=== PATIENT | male | born 1995 | race Two or more races ===

== ENCOUNTER 2020-05-05 16:03 | Inpatient (IN) | payer SELFPAY ==
[2020-05-05] VITALS (9 sets, daily range): BP systolic 127–168; BP diastolic 54–105; PULSE 90–121; RESP 18–25; TEMP 36.6–36.7; O2SAT 97–100; BMI 34.1
--- NOTE | ~2020-05-05 | XR_ITS ---
EXAMINATION: XR chest 2V DATE: 05/05/2020 17:21 INDICATION: Shortness of breath. Diabetic ketoacidosis. TECHNIQUE: frontal and lateral views of the chest were obtained. COMPARISON: None FINDINGS: The lungs are clear with no focal airspace opacities, pulmonary edema, pleural effusion or pneumothor ax. The cardiomediastinal silhouette is normal. Mild anterior wedging of a couple lower thoracic vert ebral bodies. IMPRESSION: 1. No acute cardiopulmonary disease. Reviewed, dictated and finalized at location H. OR LOGISTICS MANAGER
--- NOTE | ~2020-05-05 | XR_ITS ---
EXAMINATION: XR abdomen/kub 1V DATE: 05/05/2020 21:29 INDICATION: Constipation TECHNIQUE: A supine view of the abdomen on 2 radiographs was obtained. COMPARISON: None. FINDINGS: Moderate to large amount of stool scattered throughout the colon. Moderate amount of gas scattered th roughout multiple loops of nondilated small bowel in the abdomen and pelvis in a nonspecific nonobstr uctive bowel gas pattern. IMPRESSION: 1. Nonspecific bowel gas pattern with moderate to large amount of colonic stool consistent with given history of constipation. Reviewed, dictated and finalized at location H. LIANDEER LOOPER
[2020-05-05 16:09] LABS: Glucose Point of Care 363 (65-105)
--- NOTE | 2020-05-05 16:20 | PC.NURSE ---
provider in room.
[2020-05-05 16:25] LABS: Basophils Absolute Auto 0.1 K/mm3 (0.0-0.1); Basophils Percent Auto 0.4 % (0.2-1.2); Eosinophils Percent Auto 0.1 % (0-4.4); Hematocrit 49.1 % (42.0-52.0); Hemoglobin 16.3 g/dL (14.0-18.0); Immature Granulocyte Absolute 0.12 K/mm3 (0.00-0.031); Lymphocytes Absolute Auto 1.08 K/mm3 (0.9-3.2); Lymphocytes Percent Auto 8.8 % (18.3-44.2); Mean Corpuscular HGB Conc 33.2 g/dl (32-36); Mean Corpuscular Hemoglobin 28.4 pg (26-34); Mean Corpuscular Volume 85.5 fl (80-100); Monocytes Absolute Auto 0.6 K/mm3 (0.1-0.6); Monocytes Percent Auto 4.5 % (2.6-8.5); Neutrophils Absolute Auto 10.5 K/mm3 (1.3-6.7); Neutrophils Percent Auto 85.2 % (45.5-73.1); Platelet Count Result 344 k/mm3 (150-375); Red Blood Count 5.74 M/mm3 (4.6-6.20); Red Cell Distribution Width 14.1 % (11.5-14.5); White Blood Count 12.3 K/mm3 (4.5-10.0)
--- NOTE | 2020-05-05 16:28 | ED.NAVMDI ---
HPI - Nausea/Vomiting/Diarrhea General Chief complaint: Nausea/Vomiting/Diarrhea Stated complaint: high blood sugar Time Seen by Provider: 05/05/20 16:05 Source: patient Mode of arrival: EMS Limitations: no limitations History of Present Illness HPI Narrative: This is a 24 year old male that presents to the ER for nausea and vomiting x 1 week. Reports he was recently diagnosed with diabetes. Reports he started Metformin 3 days ago. Reports he has had polyuria and polydipsia. Reports intermittent, achy lower abdominal pain. Reports some shortness of breath with exertion. Denies fever, lower extremity edema, cough, chest pain, diarrhea, dysuria. Related Data Home Medications Medication Instructions Recorded Confirmed metformin mg 05/05/20 Allergies Allergy/AdvReac Type Severity Reaction Status Date / Time No Known Allergies Allergy Verified 05/05/20 16:16 Review of Systems Review of Systems: Narrative: CONSTITUTIONAL: Denies fever ENT: Denies rhinorrhea, congestion, sore throat CARDIOVASCULAR: Denies chest pain, or edema. RESPIRATORY: Denies cough or dyspnea. GASTROINTESTINAL: Reports abdominal pain, nausea, vomiting. Denies diarrhea. GENITOURINARY: Denies dysuria or hematuria. All systems reviewed & are unremarkable except as noted in HPI and below PMFSH Past Medical History Medical History (Updated 05/05/20 @ 18:33 by Jessica Ny PA-C) History of diabetes mellitus Social History Social History (Updated 05/05/20 @ 16:37 by Jessica Ny PA-C) Substance use: never Exam Narrative: Exam Narrative: GENERAL: Well-appearing, obese, and in no acute distress. HEAD: Normocephalic, atraumatic. EYES: PERRLA and EOMI. ENT: Nares clear, no rhinorrhea or epistaxis. Mucous membranes moist. Oropharynx without tonsillar hypertrophy exudate or other lesions. Bilateral TMs pearly cody non-bulging NECK: Supple. No adenopathy or masses. CHEST: Clear to auscultation. No respiratory distress. No wheezes rales or rhonchi HEART: Regular rate and rhythm. No murmur heard. Normal peripheral pulses. ABDOMEN: Soft, nontender, nondistended, normal active bowel sounds. EXTREMITIES: Normal range of motion. No edema. SKIN: Warm, dry, no rash. NEURO: No focal deficits. Alert and oriented x3. PSYCH: Normal mood and affect Course Consultations Consultation #1: Spoke with hospitalist about patient and workup who accepts admission Date: 05/05/20 Time: 18:39 Consultation #2: Dr Benton will consult for ICU admission Date: 05/05/20 Time: 18:40 Vital Signs Vital signs: Vital Signs Pulse Rate 119 H 05/05/20 16:09 Respiratory Rate 20 05/05/20 16:09 Pulse Oximetry 100 05/05/20 16:09 Temperature 98.0 F 05/05/20 16:19 Pulse Rate 113 H 05/05/20 16:16 Respiratory Rate 25 H 05/05/20 16:16 Blood Pressure 168/104 H 05/05/20 16:16 Pulse Oximetry 99 05/05/20 16:10 MDM - Nausea/Vomiting/Diarrhea MDM Narrative Medical decision making narrative: Patient presents to the emergency department for nausea and vomiting. Was recently diagnosed with diabetes. Patient is afebrile and nontoxic-appearing. Tachycardic upon arrival, this normalized with IV fluid administration. CBC with mild leukocytosis to 12.3. Metabolic panel with anion gap of 26 with bicarb of 7. Blood glucose is 371. Beta hydroxybutyrate is elevated. UA with 2+ ketones. ABG with pH of 7.173, PCO2 of 16, and PO2 of 125. Chest x-ray is without acute findings. EKG is without concerning changes. Patient denies any chest pain. Patient hydrated in the ED and started on insulin drip. Spoke with hospitalist about patient and work-up who accepts admission. Dr. Benton will consult for the ICU Lab Data Attestation: I reviewed the patient's lab results. Result diagrams: 05/05/20 16:20 05/05/20 16:20 Labs: Lab Results 05/05/20 05/05/20 05/05/20 Range/Units 16:07 16:19 16:20 WBC 12.3 H (4.5-10.0) K/mm3 RBC
[2020-05-05 16:32] LABS: Alveolar/Arterial O2 Gradient 5.6 mmHg; Carboxyhemoglobin 0.4 % THb (0-2.0); Fractional Inspired Oxygen 21 %; HCO3 ABG 5.7 mEq/l (22.0-26.0); Methemoglobin ABG 0.6 %THb (0-1.5); Oxygen Content ABG 23.4 %vol (16.0-22.0); Oxygen Saturation ABG 97.7 % (95.0-100.0); Oxyhemoglobin 96.9 % THb (90.0-100.0); PO2 FiO2 Ratio Arterial Blood 5.95 %; Reduced Hemoglobin 2.1 %THb (0-5.0); Total Hemoglobin 17.1 g/dL (12.0-18.0)
[2020-05-05 16:34] LABS: Device ROOM AIR; Modified Allen's Test Pass; Site Drawn RIGHT RADIAL; pH ABG 7.173 (7.350-7.450)
[2020-05-05 16:37] LABS: Alanine Aminotransferase 54 U/L (4-50); Albumin Level 4.4 g/dL (3.5-5.1); Alkaline Phosphatase 111 U/L (38-126); Anion Gap 26 mmol/L (8-16); Aspartate Amino Transferase 29 U/L (17-59); Bilirubin,Total 0.6 mg/dL (0.2-1.3); Blood Urea Nitrogen 12 mg/dL (9-20); Calcium 8.9 mg/dL (8.4-10.2); Carbon Dioxide 7 mmol/L (22-30); Chloride 108 mmol/L (98-107); Estimated CRCL calculation 115 ml/min; Estimated Glomerular Filt Rate > 60; Glucose 371 mg/dL (75-110); Phosphorus 3.7 mg/dL (2.5-4.5); Potassium 4.5 mmol/L (3.4-5.0); Sodium 141 mmol/L (137-145)
[2020-05-05] MEDS: INSULIN HUMAN REGULAR (*BKC) 100 UNITS/ML 11 UNITS IV PUSH (16:37)
[2020-05-05] MEDS: SODIUM CHLORIDE 0.9% IV 1,000 ML 999 ML IV CONT (16:37)
[2020-05-05 16:54] LABS: Add Urine Microscopic? YES; Appearance Urine Clear (Clear); Bilirubin Urine Negative (Negative); Blood Urine 1+ (Negative); Color Urine Straw (Yellow); Glucose Urine UA 3+ mg/dL (Negative); Ketones Urine 2+ mg/dL (Negative); Leukocyte Esterase Ur Negative LEU/UL (Negative); Mucus Urine Rare /lpf; Nitrate Urine Negative (Negative); Protein Urine 2+ mg/dL (Negative); RBC Urine 0-2 /hpf (0-2); Urobilinogen Urine Negative mg/dL (<2.0); WBC Urine 0-3 /hpf
[2020-05-05 17:23] LABS: Beta-Hydroxybutyrate/Acetoacetate 8.51 mmol/L (0.02-0.27)
[2020-05-05] MEDS: ONDANSETRON INJ 4 MG/2 ML VIAL IV PUSH (17:33)
[2020-05-05 17:51] LABS: NT Pro B Type Natriuretic Pept < 11 PG/ML (5-100)
[2020-05-05] MEDS: LACTATED RINGERS 1,000 ML 999 ML IV CONT (18:26)
[2020-05-05 18:41] LABS: Glucose Point of Care 287 (65-105)
[2020-05-05] MEDS: INSULIN HUMAN REGULAR (*BKC) 100 UNITS in SODIUM CHLORIDE 0.9% IV 99 ML IV CONT (19:13)
[2020-05-05] MEDS: SODIUM CHLORIDE 0.9% IV 1,000 ML 150 ML IV CONT (20:00)
[2020-05-05 20:12] LABS: Glucose Point of Care 310 (65-105)
--- NOTE | 2020-05-05 20:30 | PM.IMHP ---
H&P: HPI History of Present Illness Date/Time: 05/05/20 20:30 Chief complaint: Nausea, vomiting, and dizziness. Narrative: Peter Valverde is a 24-year-old male recently diagnosed with diabetes who presented to the emergency department earlier today via EMS from home with complaints of nausea, vomiting, and dizziness. He has not felt well for nearly 1 months time and has not worked in 3 weeks due to ongoing symptoms to include heartburn, nausea, vomiting, lightheadedness, polydipsia, polyuria, and feelings of dehydration. He was seen at [facility] 4 days ago on Monday, at that time he was diagnosed with diabetes and given a prescription for metformin 850 mg b.i.d. He has been taking the medication as directed however he was not discharged with a glucometer so he has not been monitoring his glucose. He did have an appointment set up with Dr. Hoyt (endocrinology) sometime this week. Unfortunately he has continued to feel worse, estimating that he vomited no less than 15 times yesterday. The patient's brother called 911 today as he has been sleeping for over 24 hours and appeared short of breath. He was found to be in diabetic ketoacidosis and is being admitted in this setting. At the time my evaluation his biggest complaint is of thirst. He denies fever but has had some chills. No headache, sinus congestion, rhinorrhea, otalgia, or odynophagia. He denies cough and known exposure to those positive for COVID-19. No chest pain, pleuritic pain, or palpitations. He denies hematemesis, melena, and hematochezia. No dysuria or hematuria. Or family history of autoimmune disease. Review of Systems Review of Systems: Narrative: Twelve systems were reviewed with pertinent positives and negatives as per HPI. He thinks he has lost some weight over the last 3 weeks but he has not weighed himself. No blurry vision. He denies paresthesias. He was taking antacids for his heartburn and that has improved. No orthopnea, PND, or lower extremity edema. He has not had a bowel movement in almost 1 week, which is unusual for him. He will have occasional aching discomfort in the lower abdomen but nothing significant. Except as documented, all other systems were reviewed and are negative. [facility] Past Medical History Medical History (Updated 05/05/20 @ 20:45 by Dominique Cook PA-C) Diabetes mellitus, new onset (~05/05/20) Surgical History Surgical History (Updated 05/05/20 @ 20:46 by Dominique Cook PA-C) No history of previous surgery Family History Family History (Updated 05/05/20 @ 20:46 by Dominique Cook PA-C) Sibling Epilepsy Cerebral palsy Social History Social History (Updated 05/05/20 @ 20:47 by Dominique Cook PA-C) Social History: The patient lives in [place] with his brother and grandmother. 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 He has no children. He is a lifelong nonsmoker and denies alcohol and illicit substance abuse. He designates his brother Carlos Valverde as his surrogate decision maker and he wishes to be a full code. Meds Home Medications and Allergies Home Medications Medication Instructions Recorded Confirmed Type metformin mg 05/05/20 History Allergies Allergy/AdvReac Type Severity Reaction Status Date / Time No Known Allergies Allergy Verified 05/05/20 16:16 Vital Signs Vital Signs - 24 hr 05/05/20 16:09 05/05/20 16:10 05/05/20 16:15 Temperature Pulse Rate 119 H 121 H 112 H Respiratory Rate 20 23 H 24 H Blood Pressure 161/105 H Pulse Oximetry 100 99 05/05/20 16:16 05/05/20 16:19 05/05/20 19:30 Temperature 98.0 F 98.0 F Pulse Rate 113 H 104 H Respiratory Rate 25 H 18 Blood Pressure 168/104 H 157/80 H Pulse Oximetry 97 Exam Narrative: Exam Narrative: General: Moderately ill-appearing male supine in bed in no distress. Weight: 107.8 kg. BMI: 34.1. HEENT: Normocephalic, atraumatic. PERRL, EOMI. Sclerae anicteric. Oral mu
--- NOTE | 2020-05-05 20:31 | WPDCNINT ---
Assessment and Plan Assessment and plan (1) Diabetic ketoacidosis: Qualifiers: Diabetes mellitus complication detail: without coma Diabetes mellitus type: type 2 Qualified Code(s): E11.10 - Type 2 diabetes mellitus with ketoacidosis without coma Code(s): E11.10 - Type 2 diabetes mellitus with ketoacidosis without coma Status: Acute Assessment and Plan: It is unclear at this time if patient is in DKA due to type 1 or type 2 diabetes. Antibody testing is pending. Patient is on insulin drip in IV fluid hydration per protocol. Will continue serial BMPs and monitor for anion gap closure and normalization of CO2. clinical document improvement educator and dietitian consult have been placed (2) Constipation: Qualifiers: Constipation type: slow transit constipation Qualified Code(s): K59.01 - Slow transit constipation Code(s): K59.00 - Constipation, unspecified Status: Acute Assessment and Plan: Will initiate patient on MiraLax given evidence of large stool volume on KUB. (3) Elevated blood pressure reading: Code(s): R03.0 - Elevated blood-pressure reading, without diagnosis of hypertension Status: Acute Assessment and Plan: The patient's blood pressures have improved. Will continue to monitor and consider initiating antihypertensives if Recurrent blood pressure elevation is noted. Additional Plan 35 minutes spent in critical care activities. This case had a high probability of a clinically significant, sudden, or life threatening deterioration of this patient's condition which required my full and direct attention, intervention and personal management. Solar Crew Member Consult Note Consult date: 05/06/20 Time Seen: 20:30 HPI: Date and time of patient contact: 05/05/2020 at 8:30 p.m. Peter Valverde is a 24 year old male with a past medical history of obesity and new diagnosis of diabetes who presented to the ER with nausea vomiting and dizziness. The patient was just diagnosed with diabetes on Monday (5 days ago) when he went to [facility] Who presented to our ER with progressive nausea and vomiting despite taking metformin prescribed at outside facility. The patient reports that he has had approximately 3 weeks progressive nausea and polydipsia. He has had intermittent vomiting for the last couple of weeks . He reports that his vomiting is worse when he drinks tap water. The only liquids he has been able to keep down has been regular soda. He has had polydipsia and polyuria. He had not noticed his weight loss but he has noticed that his pants have been fitting looser than usual. He has not noticed any headache, visual changes, cough, congestion, fevers or chills. he has not had any recent ill contacts and denies any diarrhea. He has had decreased amount of bowel movements that he associates with his decreased appetite nausea and vomiting. He has had some mild intermittent lower abdominal pain without any eliciting or relieving factors. the patient had been referred to Dr. Proctor endocrinology from [facility] but he did not receive a glucometer or instructions on Accu-Cheks at the time of discharge. 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 He has not been referred to a dietitian or breastfeeding educator as of yet. The patient had received 800 mL of isotonic fluids in route to the hospital. He received an additional 2 L of isotonic fluids in the ER. Review of Systems Review of Systems: Narrative: 12 systems were reviewed with pertinent positives and negatives per HPI. Except as documented in the HPI, all other systems were reviewed and are negative. [facility] Past Medical History Medical History Diabetes mellitus, new onset (~05/05/20) Surgical History Surgical History No history of previous surgery
[2020-05-05 21:26] LABS: Glucose Point of Care 188 (65-105)
[2020-05-05] MEDS: FAMOTIDINE 20 MG/2 ML VIAL IV PUSH (21:44)
[2020-05-05] MEDS: KCL 20 MEQ/D5/0.45% SOD CHL 1,000 ML 150 ML IV CONT (21:44)
[2020-05-05 21:59] LABS: Glucose Point of Care 205 (65-105)
--- NOTE | 2020-05-05 22:09 | ADMGEN ---
This patient, Peter Valverde, was admitted to IMU Room 205-01. Patient/family oriented to hospital policies and general routines including ID bracelet, bed and alarms, visiting hours, pain management, procedures, bathroom and other care routines, personal items, smoking policy, room service/diet, and visiting hours. Information on how to activate the Rapid Response Team has been discussed. Patient/Family are encouraged to report perceived risks to care and to ask questions if they do not understand what they are told or what they should do.
[2020-05-05 22:13] LABS: Phosphorus 1.4 mg/dL (2.5-4.5)
[2020-05-05 22:14] LABS: Anion Gap 22 mmol/L (8-16); Blood Urea Nitrogen 11 mg/dL (9-20); Calcium 9.1 mg/dL (8.4-10.2); Carbon Dioxide 7 mmol/L (22-30); Chloride 114 mmol/L (98-107); Estimated CRCL calculation 151 ml/min; Estimated Glomerular Filt Rate > 60; Glucose 177 mg/dL (75-110); Potassium 3.8 mmol/L (3.4-5.0); Sodium 143 mmol/L (137-145)
[2020-05-05 22:24] LABS: Hemoglobin A1C 13.3 % (<5.7)
[2020-05-05 23:28] LABS: Hemoglobin A1C 13.4 % (<5.7)
[2020-05-05 23:37] LABS: Glucose Point of Care 195 (65-105)
[2020-05-06] VITALS (13 sets, daily range): BP systolic 101–150; BP diastolic 45–76; PULSE 73–109; RESP 16–20; TEMP 35.6–36.7; O2SAT 97–100
[2020-05-06] LABS: Anion Gap 18 mmol/L (8-16); Blood Urea Nitrogen 11 mg/dL (9-20); Carbon Dioxide 10 mmol/L (22-30); Chloride 114 mmol/L (98-107); Estimated CRCL calculation 151 ml/min; Estimated Glomerular Filt Rate > 60; Glucose 209 mg/dL (75-110); Potassium 3.7 mmol/L (3.4-5.0); Sodium 142 mmol/L (137-145)
[2020-05-06 00:56] LABS: Glucose Point of Care 198 (65-105)
[2020-05-06 02:13] LABS: Glucose Point of Care 154 (65-105)
[2020-05-06 03:09] LABS: Glucose Point of Care 161 (65-105)
[2020-05-06 03:21] LABS: Add Urine Microscopic? YES; Appearance Urine Clear (Clear); Bilirubin Urine Negative (Negative); Blood Urine Negative (Negative); Color Urine Yellow (Yellow); Glucose Urine UA 3+ mg/dL (Negative); Ketones Urine 2+ mg/dL (Negative); Leukocyte Esterase Ur Negative LEU/UL (NEGATIVE); Mucus Urine Rare /lpf; Nitrate Urine Negative (Negative); Protein Urine 2+ mg/dL (Negative); RBC Urine 0-2 /hpf (0-2); Specific Grav Ur 1.024 (1.001-1.035); Squamous Epithelial Cell Urine Rare /hpf (Few); Urobilinogen Urine Negative mg/dL (<2.0); WBC Urine 0-3 /hpf (0-3)
[2020-05-06 04:35] LABS: Glucose Point of Care 143 (65-105)
[2020-05-06] MEDS: INSULIN HUMAN REGULAR (*BKC) 100 UNITS in SODIUM CHLORIDE 0.9% IV 99 ML 5.7 UNITS IV CONT (04:38)
[2020-05-06] MEDS: KCL 20 MEQ/D5/0.45% SOD CHL 1,000 ML 150 ML IV CONT ×2 (04:38→17:12)
[2020-05-06 05:00] LABS: Hematocrit 40.1 % (42.0-52.0); Hemoglobin 14.1 g/dL (14.0-18.0); Mean Corpuscular HGB Conc 35.2 g/dl (32-36); Mean Corpuscular Hemoglobin 28.5 pg (26-34); Mean Corpuscular Volume 81.2 fl (80-100); Mean Platelet Volume 9.9 fl (7.4-10.4); Platelet Count Result 288 k/mm3 (150-375); Red Blood Count 4.94 M/mm3 (4.6-6.20); Red Cell Distribution Width 13.8 % (11.5-14.5)
[2020-05-06 05:15] LABS: Alanine Aminotransferase 46 U/L (4-50); Albumin Level 3.9 g/dL (3.5-5.1); Alkaline Phosphatase 87 U/L (38-126); Anion Gap 12 mmol/L (8-16); Aspartate Amino Transferase 25 U/L (17-59); Bilirubin,Total 0.5 mg/dL (0.2-1.3); Blood Urea Nitrogen 12 mg/dL (9-20); Calcium 9.1 mg/dL (8.4-10.2); Carbon Dioxide 15 mmol/L (22-30); Chloride 114 mmol/L (98-107); Cholesterol 182 mg/dL (0-200); Estimated CRCL calculation 151 ml/min; Estimated Glomerular Filt Rate > 60; Glucose 143 mg/dL (75-110); HDL Direct 35 mg/dL; Magnesium 2.3 mg/dL (1.6-2.3); Potassium 3.2 mmol/L (3.4-5.0); Sodium 141 mmol/L (137-145); Triglycerides 230 mg/dL (<150)
[2020-05-06 05:21] LABS: Glucose Point of Care 132 (65-105)
[2020-05-06 05:26] LABS: LDL Cholesterol Direct 90 mg/dL
[2020-05-06 06:42] LABS: Glucose Point of Care 135 (65-105)
--- NOTE | 2020-05-06 07:23 | WPDINTPN ---
Progress Note: A&P Assessment and Plan (1) Diabetes mellitus, new onset: Onset Date: ~05/05/20 Code(s): E11.9 - Type 2 diabetes mellitus without complications Status: Acute Assessment and Plan: The patient's bicarb has improved significantly in his anion gap is closed. Will discontinue insulin drip if CO2 as continue to improve and transition patient to Lantus and sliding scale insulin. Patient will be transferred to the medical floor once insulin drip is discontinued. I suspect the patient will be on the insulin drip by this afternoon at the latest. special educator and dietitian have been consulted. (2) Constipation: Qualifiers: Constipation type: slow transit constipation Qualified Code(s): K59.01 - Slow transit constipation Code(s): K59.00 - Constipation, unspecified Status: Acute Assessment and Plan: Will initiate patient on MiraLax given evidence of large stool volume on KUB. (3) Elevated blood pressure reading: Code(s): R03.0 - Elevated blood-pressure reading, without diagnosis of hypertension Status: Acute Assessment and Plan: The patient's blood pressures have improved. Will continue to monitor and consider initiating antihypertensives if Recurrent blood pressure elevation is noted. (4) Diabetic ketoacidosis: Qualifiers: Diabetes mellitus complication detail: without coma Diabetes mellitus type: type 2 Qualified Code(s): E11.10 - Type 2 diabetes mellitus with ketoacidosis without coma Code(s): E11.10 - Type 2 diabetes mellitus with ketoacidosis without coma Status: Acute Assessment and Plan: Please see above plan. Time Spent With Patient Time with patient: 15 - 25 minutes Subjective Date/time seen: 05/06/20 07:23 The patient the throughout the night. He did have a more severe episode of nausea this morning and thought he may vomit. He is still feeling constipated. He denies any current abdominal pain. He feels marginally better. Review of Systems Constitutional: Constitutional: Reports malaise and Reports poor appetite Eyes: Eyes: Denies change in vision ENT: Reports dry mouth Gastrointestinal: Gastrointestinal: Reports abdominal pain, Reports constipation and Reports nausea Genitourinary: Genitourinary: Reports urinary frequency Exam Narrative: Exam Narrative: PHYSICAL EXAM: WEIGHT 107.8 kg BMI 34.1 General: no acute distress, overweight HEENT: mucous membranes are tacky, no oral pharyngeal erythema, no scleral icterus, pupils are equal and reactive, no thyromegaly Respiratory: clear to auscultation bilaterally, mild conversational tachypnea, no increased work of breathing Cardiovascular: Sinus tachycardia, 2+ bilateral radial pedal pulses Gastrointestinal: soft, distended, nontender, normoactive bowel sounds Skin: no jaundice, no pallor Musculoskeletal: no skin breakdown on the feet, no clubbing cyanosis or edema Neurological: alert and oriented, speech is clear, no facial asymmetry, no localizing neurologic deficits noted on limited exam Psychiatric: appropriate mood and affect, pleasant and cooperative : deferred Hematologic/lymphatic: no bruising, petechiae or active bleeding Objective Data Vital Signs Vital Signs: Vital Signs - 24 hr 05/05/20 16:09 05/05/20 16:10 05/05/20 16:15 Temperature Pulse Rate 119 H 121 H 112 H Respiratory Rate 20 23 H 24 H Blood Pressure 161/105 H Pulse Oximetry 100 99 05/05/20 16:16 05/05/20 16:19 05/05/20 19:30 Temperature 98.0 F 98.0 F Pulse Rate 113 H 104 H Respiratory Rate 25 H 18 Blood Pressure 168/104 H 157/80 H Pulse Oximetry 97 05/05/20 20:00 05/05/20 22:00 05/05/20 23:47 Temperature 97.9 F 97.8 F Pulse Rate 116 H 102 H 90 Respiratory Rate 20 20 18 Blood Pressure 157/80 H 138/66 127/54 L Pulse Oximetry 97 97 97 05/06/20 00:00 05/06/20 02:00 05/06/20 04:00 Temperature 97.9 F
[2020-05-06 09:08] LABS: Anion Gap 13 mmol/L (8-16); Blood Urea Nitrogen 13 mg/dL (9-20); Calcium 9.2 mg/dL (8.4-10.2); Carbon Dioxide 14 mmol/L (22-30); Chloride 113 mmol/L (98-107); Estimated CRCL calculation 171 ml/min; Estimated Glomerular Filt Rate > 60; Glucose 187 mg/dL (75-110); Potassium 4.2 mmol/L (3.4-5.0); Sodium 140 mmol/L (137-145)
[2020-05-06] MEDS: lisinopriL 10 MG TABLET PO (09:40)
[2020-05-06] MEDS: FAMOTIDINE 20 MG/2 ML VIAL IV PUSH ×2 (09:40→20:40)
[2020-05-06] MEDS: ENOXAPARIN 40 MG/0.4 ML SYRINGE SUB-Q (09:40)
[2020-05-06] MEDS: polyethylene glycoL 3350 17 GM POWD.PACK PO (09:40)
[2020-05-06] MEDS: POTASSIUM PHOS,M-BASIC-D-BASIC 20 MMOL in SODIUM CHLORIDE 0.9% IV 250 ML 62.5 MMOL IVPB ×2 (09:41→18:32)
[2020-05-06 10:33] LABS: Glucose Point of Care 360 (65-105)
[2020-05-06 10:33] LABS: Glucose Point of Care 199 (65-105)
[2020-05-06 10:33] LABS: Glucose Point of Care 142 (65-105)
[2020-05-06 11:55] LABS: Albumin Level 3.7 g/dL (3.5-5.1); Anion Gap 10 mmol/L (8-16); Blood Urea Nitrogen 13 mg/dL (9-20); Calcium 8.8 mg/dL (8.4-10.2); Carbon Dioxide 16 mmol/L (22-30); Chloride 113 mmol/L (98-107); Estimated CRCL calculation 197 ml/min; Estimated Glomerular Filt Rate > 60; Glucose 308 mg/dL (75-110); Phosphorus 2.4 mg/dL (2.5-4.5); Potassium 3.4 mmol/L (3.4-5.0); Sodium 139 mmol/L (137-145)
[2020-05-06 12:29] LABS: Glucose Point of Care 399 (65-105)
[2020-05-06] MEDS: POTASSIUM CHLORIDE 20 MEQ TABLET 40 MEQ PO ×3 (14:09→22:23)
[2020-05-06] MEDS: POTASSIUM PHOS/SODIUM PHOS 250 MG TABLET PO (14:12)
[2020-05-06] MEDS: INSULIN HUMAN REGULAR (*BKC) 100 UNITS in SODIUM CHLORIDE 0.9% IV 99 ML 26 UNITS IV CONT (14:30)
[2020-05-06] MEDS: INSULIN GLARGINE (*BKC) 100 UNITS/ML 50 UNITS SUB-Q (16:14)
[2020-05-06 16:19] LABS: Anion Gap 9 mmol/L (8-16); Blood Urea Nitrogen 13 mg/dL (9-20); Carbon Dioxide 16 mmol/L (22-30); Chloride 110 mmol/L (98-107); Estimated CRCL calculation 151 ml/min; Estimated Glomerular Filt Rate > 60; Glucose 348 mg/dL (75-110); Sodium 135 mmol/L (137-145)
[2020-05-06 16:20] LABS: Albumin Level 3.5 g/dL (3.5-5.1); Anion Gap 10 mmol/L (8-16); Blood Urea Nitrogen 13 mg/dL (9-20); Calcium 9.1 mg/dL (8.4-10.2); Carbon Dioxide 17 mmol/L (22-30); Chloride 109 mmol/L (98-107); Estimated CRCL calculation 151 ml/min; Estimated Glomerular Filt Rate > 60; Glucose 344 mg/dL (75-110); Phosphorus 1.7 mg/dL (2.5-4.5); Sodium 136 mmol/L (137-145)
--- NOTE | 2020-05-06 16:57 | PM.IMPN ---
Progress Note: A&P Assessment and Plan (1) Diabetes mellitus, new onset: Onset Date: ~05/05/20 Code(s): E11.9 - Type 2 diabetes mellitus without complications Status: Acute Assessment and Plan: The patient's anion gap is closed but bicarb still at 17 this afternoon.. Lantus was given and efficiency engineer continuing insulin for now Patient will be transferred to the medical floor once insulin drip is discontinued. museum educator and dietitian have been consulted. (2) Constipation: Qualifiers: Constipation type: slow transit constipation Qualified Code(s): K59.01 - Slow transit constipation Code(s): K59.00 - Constipation, unspecified Status: Acute Assessment and Plan: Will initiate patient on MiraLax given evidence of large stool volume on KUB. (3) Elevated blood pressure reading: Code(s): R03.0 - Elevated blood-pressure reading, without diagnosis of hypertension Status: Acute Assessment and Plan: The patient's blood pressures have improved. But still higher than should be at his age and with the diabetes will started TIM-inhibitor 10 mg daily lisinopril (4) Diabetic ketoacidosis: Qualifiers: Diabetes mellitus complication detail: without coma Diabetes mellitus type: type 2 Qualified Code(s): E11.10 - Type 2 diabetes mellitus with ketoacidosis without coma Code(s): E11.10 - Type 2 diabetes mellitus with ketoacidosis without coma Status: Acute Assessment and Plan: Please see above plan. Replace potassium and phosphorus (5) DVT prophylaxis: Code(s): Z29.9 - Encounter for prophylactic measures, unspecified Status: Acute Assessment and Plan: Lovenox Subjective Date/time seen: 05/06/20 16:57 Interval history: Date of visit 05/06. 24-year-old new onset diabetic admitted and diabetic ketoacidosis with dehydration. After fluid resuscitation IV insulin he is feeling better but still weak. Tolerated liquids for breakfast with no nausea or vomiting. Exam Narrative: Exam Narrative: Blood pressure 134/54 pulse is 96 saturating 99% on room air afebrile Pupil equal reactive light sclera anicteric Lungs clear CV no murmurs or gallops Abdomen soft nontender no masses Extremities without edema good distal pulses Neuro alert pleasant cooperative no focal deficits Objective Data Vital Signs Vital Signs: Vital Signs - 24 hr 05/05/20 19:30 05/05/20 20:00 05/05/20 22:00 Temperature 36.7 C 36.6 C Pulse Rate 104 H 116 H 102 H Respiratory Rate 18 20 20 Blood Pressure 157/80 H 157/80 H 138/66 Pulse Oximetry 97 97 97 05/05/20 23:47 05/06/20 00:00 05/06/20 02:00 Temperature 36.6 C Pulse Rate 90 97 98 Respiratory Rate 18 18 20 Blood Pressure 127/54 L 134/76 Pulse Oximetry 97 97 98 05/06/20 04:00 05/06/20 06:00 05/06/20 08:00 Temperature 36.6 C 35.6 C L Pulse Rate 82 82 87 Respiratory Rate 20 20 16 Blood Pressure 142/74 H 142/76 H 125/53 L Pulse Oximetry 97 98 100 05/06/20 10:00 05/06/20 12:00 05/06/20 14:00 Temperature 36.1 C L 36.2 C L Pulse Rate 85 94 96 Respiratory Rate 18 18 16 Blood Pressure 150/62 H 139/70 133/55 L Pulse Oximetry 100 100 99 05/06/20 16:00 Temperature 36.0 C L Pulse Rate 104 H Respiratory Rate 18 Blood Pressure 144/67 H Pulse Oximetry 100 Intake/Output Intake/Output: Intake & Output 05/03/20 05/04/20 05/05/20 05/06/20 23:59 23:59 23:59 23:59 Intake Total 1999 2390 Output Total 1450 Balance 1999 940 Meds/Results Medications: Active Medications Generic Name Dose Route Start Last Admin Trade Name Freq PRN Reason Stop Dose Admin Dextrose 12.5 gm 05/06/20 13:27 Dextrose 50% 25 Gm/50 Ml Syringe IV PUSH PRN PRN Hypoglycemia Protocol Enoxaparin Sodium 40 mg 05/06/20 09:00 05/06/20 09:40 Enoxaparin 40 Mg/0.4 Ml Syringe SUB-Q 40 mg DAILY SWATI Administration Famotidine 20 mg 05/05/20
[2020-05-06 17:35] LABS: Glucose Point of Care 276 (65-105)
[2020-05-06 17:35] LABS: Glucose Point of Care 235 (65-105)
[2020-05-06 17:35] LABS: Glucose Point of Care 159 (65-105)
[2020-05-06 17:35] LABS: Glucose Point of Care 393 (65-105)
[2020-05-06 17:35] LABS: Glucose Point of Care 322 (65-105)
[2020-05-06 17:35] LABS: Glucose Point of Care 260 (65-105)
[2020-05-06] MEDS: INSULIN HUMAN REGULAR (*BKC) 100 UNITS in SODIUM CHLORIDE 0.9% IV 99 ML 10 UNITS IV CONT (18:31)
[2020-05-06 19:02] LABS: Glucose Point of Care 230 (65-105)
[2020-05-06 19:02] LABS: Glucose Point of Care 147 (65-105)
[2020-05-06 19:57] LABS: Glucose Point of Care 221 (65-105)
[2020-05-06 20:59] LABS: Glucose Point of Care 172 (65-105)
[2020-05-06 22:04] LABS: Glucose Point of Care 146 (65-105)
[2020-05-06 23:05] LABS: Glucose Point of Care 115 (65-105)
[2020-05-06 23:51] LABS: Glucose Point of Care 110 (65-105)
[2020-05-07] VITALS (8 sets, daily range): BP systolic 101–141; BP diastolic 44–76; PULSE 74–97; RESP 12–20; TEMP 36.2–36.6; O2SAT 97–100
[2020-05-07] MEDS: KCL 20 MEQ/D5/0.45% SOD CHL 1,000 ML 150 ML IV CONT (00:03)
[2020-05-07 00:43] LABS: Anion Gap 6 mmol/L (8-16); Blood Urea Nitrogen 11 mg/dL (9-20); Calcium 8.8 mg/dL (8.4-10.2); Carbon Dioxide 19 mmol/L (22-30); Chloride 115 mmol/L (98-107); Estimated CRCL calculation 197 ml/min; Estimated Glomerular Filt Rate > 60; Glucose 110 mg/dL (75-110); Potassium 3.2 mmol/L (3.4-5.0); Sodium 140 mmol/L (137-145)
[2020-05-07 05:01] LABS: Basophils Percent Auto 0.5 % (0.2-1.2); Eosinophils Absolute Auto 0.1 K/mm3 (0-0.3); Eosinophils Percent Auto 1.6 % (0-4.4); Hematocrit 38.3 % (42.0-52.0); Hemoglobin 13.1 g/dL (14.0-18.0); Immature Granulocyte Absolute 0.03 K/mm3 (0.00-0.031); Immature Granulocyte Percent A 0.5 % (0-0.5); Lymphocytes Absolute Auto 2.28 K/mm3 (0.9-3.2); Lymphocytes Percent Auto 37.3 % (18.3-44.2); Mean Corpuscular HGB Conc 34.2 g/dl (32-36); Mean Corpuscular Hemoglobin 28.4 pg (26-34); Mean Corpuscular Volume 82.9 fl (80-100); Monocytes Absolute Auto 0.6 K/mm3 (0.1-0.6); Monocytes Percent Auto 9.5 % (2.6-8.5); Neutrophils Absolute Auto 3.1 K/mm3 (1.3-6.7); Neutrophils Percent Auto 50.6 % (45.5-73.1); Platelet Count Result 219 k/mm3 (150-375); Red Blood Count 4.62 M/mm3 (4.6-6.20); White Blood Count 6.1 K/mm3 (4.5-10.0)
[2020-05-07 05:15] LABS: Albumin Level 3.1 g/dL (3.5-5.1); Anion Gap 11 mmol/L (8-16); Blood Urea Nitrogen 10 mg/dL (9-20); Calcium 8.9 mg/dL (8.4-10.2); Carbon Dioxide 17 mmol/L (22-30); Chloride 112 mmol/L (98-107); Estimated CRCL calculation 177 ml/min; Estimated Glomerular Filt Rate > 60; Glucose 178 mg/dL (75-110); Phosphorus 3.7 mg/dL (2.5-4.5); Potassium 3.5 mmol/L (3.4-5.0); Sodium 140 mmol/L (137-145)
[2020-05-07 08:34] LABS: Glucose Point of Care 219 (65-105)
[2020-05-07] MEDS: INSULIN ASPART (*BKC) 100 UNITS/ML 8 UNITS SUB-Q ×2 (09:02→11:44)
[2020-05-07] MEDS: INSULIN ASPART (*BKC) 100 UNITS/ML SUB-Q ×3 (09:02→16:28)
[2020-05-07] MEDS: INSULIN GLARGINE (*BKC) 100 UNITS/ML 50 UNITS SUB-Q (09:03)
[2020-05-07] MEDS: POTASSIUM CHLORIDE 20 MEQ TABLET 40 MEQ PO ×2 (09:04→18:26)
[2020-05-07] MEDS: lisinopriL 10 MG TABLET PO (09:05)
[2020-05-07] MEDS: FAMOTIDINE 20 MG/2 ML VIAL IV PUSH ×2 (09:05→21:39)
[2020-05-07] MEDS: ENOXAPARIN 40 MG/0.4 ML SYRINGE SUB-Q (09:05)
--- NOTE | 2020-05-07 10:26 | PCDIET ---
pt transferred to room 243 at 1015 on 05-07. Report given to Dinorah MAO
[2020-05-07 11:55] LABS: Glucose Point of Care 270 (65-105)
--- NOTE | 2020-05-07 12:24 | PM.IMPN ---
Progress Note: A&P Assessment and Plan (1) Diabetes mellitus, new onset: Onset Date: ~05/05/20 Code(s): E11.9 - Type 2 diabetes mellitus without complications Status: Acute Assessment and Plan: The patient's anion gap is closed but bicarb still at 17 this am.. Lantus was given with schedule novolog at meals Patient will be transferred to the medical floor today off the insulin drip 116 hours. primary special educator and dietitian have been consulted. (2) Constipation: Qualifiers: Constipation type: slow transit constipation Qualified Code(s): K59.01 - Slow transit constipation Code(s): K59.00 - Constipation, unspecified Status: Acute Assessment and Plan: patient on MiraLax given evidence of large stool volume on KUB. (3) Elevated blood pressure reading: Code(s): R03.0 - Elevated blood-pressure reading, without diagnosis of hypertension Status: Acute Assessment and Plan: The patient's blood pressures have improved. at his age and with the diabetes started TIM-inhibitor 10 mg daily lisinopril 05/05 (4) Diabetic ketoacidosis: Qualifiers: Diabetes mellitus complication detail: without coma Diabetes mellitus type: type 2 Qualified Code(s): E11.10 - Type 2 diabetes mellitus with ketoacidosis without coma Code(s): E11.10 - Type 2 diabetes mellitus with ketoacidosis without coma Status: Acute Assessment and Plan: Please see above plan. Replaced potassium and phosphorus, c02 still 17 so will recheck this afternoon (5) DVT prophylaxis: Code(s): Z29.9 - Encounter for prophylactic measures, unspecified Status: Acute Assessment and Plan: Lovenox Subjective Date/time seen: 05/07/20 12:24 Interval history: Date of visit 05/07. 24-year-old new onset diabetic admitted and diabetic ketoacidosis with dehydration. After fluid resuscitation IV insulin he is feeling better but still weak. Tolerated regular diet with minimal nausea but no vomiting. Exam Narrative: Exam Narrative: Blood pressure 124/56 pulse is 82 saturating 98% on room air afebrile Pupil equal reactive light sclera anicteric Lungs clear CV no murmurs or gallops Abdomen soft nontender no masses Extremities without edema good distal pulses Neuro alert pleasant cooperative no focal deficits Objective Data Vital Signs Vital Signs: Vital Signs - 24 hr 05/06/20 14:00 05/06/20 16:00 05/06/20 18:00 Temperature 36.2 C L 36.0 C L 36.0 C L Pulse Rate 95 99 98 Respiratory Rate 16 18 18 Blood Pressure 133/55 L 144/67 H 102/70 Pulse Oximetry 99 100 100 05/06/20 20:00 05/06/20 22:00 05/06/20 23:54 Temperature 36.7 C 36.6 C 36.2 C L Pulse Rate 96 93 94 Respiratory Rate 18 20 18 Blood Pressure 134/56 L 127/46 L 101/45 L Pulse Oximetry 98 97 100 05/07/20 00:00 05/07/20 02:00 05/07/20 04:00 Temperature 36.5 C 36.6 C Pulse Rate 84 90 82 Respiratory Rate 18 18 20 Blood Pressure 101/55 L 103/44 L Pulse Oximetry 100 99 97 05/07/20 05:44 05/07/20 06:00 05/07/20 08:00 Temperature 36.6 C 36.2 C L Pulse Rate 78 77 83 Respiratory Rate 20 12 Blood Pressure 120/45 L 123/56 L Pulse Oximetry 97 98 Intake/Output Intake/Output: Intake & Output 05/04/20 05/05/20 05/06/20 05/07/20 23:59 23:59 23:59 23:59 Intake Total 1999 3090 1550 Output Total 1450 650 Balance 1999 1640 900 Meds/Results Medications: Active Medications Generic Name Dose Route Start Last Admin Trade Name Freq PRN Reason Stop Dose Admin Dextrose 12.5 gm 05/07/20 01:04 Dextrose 50% 25 Gm/50 Ml Syringe IV PUSH PRN PRN Hypoglycemia Protocol Enoxaparin Sodium 40 mg 05/06/20 09:00 05/07/20 09:05 Enoxaparin 40 Mg/0.4 Ml Syringe SUB-Q 40 mg DAILY SWATI Administration Famotidine 20 mg 05/05/20 21:00 05/07/20 09:05 Famotidine 20 Mg/2 Ml Vial IV PUSH 20 mg Q12HR SWATI Administration Glucagon 1 mg 05/07
[2020-05-07 16:27] LABS: Glucose Point of Care 316 (65-105)
[2020-05-07] MEDS: INSULIN ASPART (*BKC) 100 UNITS/ML 10 UNITS SUB-Q ×2 (16:29→21:39)
[2020-05-07 16:50] LABS: Albumin Level 3.5 g/dL (3.5-5.1); Anion Gap 8 mmol/L (8-16); Blood Urea Nitrogen 13 mg/dL (9-20); Carbon Dioxide 19 mmol/L (22-30); Chloride 106 mmol/L (98-107); Estimated CRCL calculation 177 ml/min; Estimated Glomerular Filt Rate > 60; Glucose 318 mg/dL (75-110); Phosphorus 2.4 mg/dL (2.5-4.5); Potassium 3.5 mmol/L (3.4-5.0); Sodium 133 mmol/L (137-145)
[2020-05-07] MEDS: POTASSIUM PHOS,M-BASIC-D-BASIC 20 MMOL in SODIUM CHLORIDE 0.9% IV 250 ML 64 MMOL IVPB (18:26)
[2020-05-07 20:25] LABS: Glucose Point of Care 407 (65-105)
[2020-05-08 05:41] LABS: Anion Gap 5 mmol/L (8-16); Blood Urea Nitrogen 9 mg/dL (9-20); Calcium 8.6 mg/dL (8.4-10.2); Carbon Dioxide 25 mmol/L (22-30); Chloride 108 mmol/L (98-107); Estimated CRCL calculation 203 ml/min; Estimated Glomerular Filt Rate > 60; Glucose 166 mg/dL (75-110); Phosphorus 4.5 mg/dL (2.5-4.5); Potassium 2.8 mmol/L (3.4-5.0); Sodium 138 mmol/L (137-145)
[2020-05-08 05:45] VITALS: BP 130/52; PULSE 75; RESP 16; TEMP 36.1; O2SAT 99
[2020-05-08] MEDS: INSULIN GLARGINE (*BKC) 100 UNITS/ML 50 UNITS SUB-Q (07:45)
[2020-05-08] MEDS: INSULIN ASPART (*BKC) 100 UNITS/ML 10 UNITS SUB-Q ×3 (07:46→17:54)
[2020-05-08 07:50] LABS: Glucose Point of Care 187 (65-105)
[2020-05-08] MEDS: ONDANSETRON INJ 4 MG/2 ML VIAL IV PUSH (08:27)
[2020-05-08] MEDS: POTASSIUM CHLORIDE 20 MEQ TABLET 40 MEQ PO ×2 (08:28→11:55)
[2020-05-08] MEDS: lisinopriL 10 MG TABLET PO (08:28)
[2020-05-08] MEDS: ENOXAPARIN 40 MG/0.4 ML SYRINGE SUB-Q (08:28)
[2020-05-08 11:46] LABS: Glucose Point of Care 348 (65-105)
[2020-05-08] MEDS: INSULIN ASPART (*BKC) 100 UNITS/ML SUB-Q (11:53)
[2020-05-08 12:45] LABS: Anion Gap 11 mmol/L (8-16); Blood Urea Nitrogen 9 mg/dL (9-20); Calcium 9.1 mg/dL (8.4-10.2); Carbon Dioxide 24 mmol/L (22-30); Chloride 99 mmol/L (98-107); Estimated CRCL calculation 177 ml/min; Estimated Glomerular Filt Rate > 60; Glucose 340 mg/dL (75-110); Potassium 3.9 mmol/L (3.4-5.0); Sodium 134 mmol/L (137-145)
[2020-05-08 14:00] VITALS: BP 140/66; PULSE 92; RESP 16; TEMP 36.4; O2SAT 100
[2020-05-08 15:30] VITALS: BMI 36.3
--- NOTE | 2020-05-08 17:19 | PC.NURSE ---
Called in insulin pens to [facility] in [place] per Dr. Ecnarnacion.
--- NOTE | 2020-05-08 18:00 | PM.DS ---
DS: Admitting Diagnosis Admitting Diagnosis Admitting Diagnosis: DKA DS: Discharge Diagnosis Discharge Diagnosis (1) Diabetes mellitus, new onset: Onset Date: ~05/05/20 Code(s): E11.9 - Type 2 diabetes mellitus without complications Status: Acute Assessment and Plan: The patient's anion gap is closed and bicarb l at 24 at d/c. .. Lantus was given with schedule novolog at meals clinical educator and dietitian met with patient before discharge FBS 166 day of discharge (2) Constipation: Qualifiers: Constipation type: slow transit constipation Qualified Code(s): K59.01 - Slow transit constipation Code(s): K59.00 - Constipation, unspecified Status: Acute Assessment and Plan: patient on MiraLax given evidence of large stool volume on KUB. (3) Elevated blood pressure reading: Code(s): R03.0 - Elevated blood-pressure reading, without diagnosis of hypertension Status: Acute Assessment and Plan: The patient's blood pressures have improved. at his age and with the diabetes started TIM-inhibitor 10 mg daily lisinopril 05/05 (4) Diabetic ketoacidosis: Qualifiers: Diabetes mellitus complication detail: without coma Diabetes mellitus type: type 2 Qualified Code(s): E11.10 - Type 2 diabetes mellitus with ketoacidosis without coma Code(s): E11.10 - Type 2 diabetes mellitus with ketoacidosis without coma Status: Acute Assessment and Plan: Please see above plan. Replaced potassium and phosphorus, c02 24 with potassium 3.9 at discharge DS: Summary Hospital Course Hospital Course: 24-year-old recently diagnosis diabetic presented with nausea vomiting found to have elevated blood sugar and keto acidosis. With aggressive hydration and IV insulin patient cleared ketones and lower blood sugar. Placed on long-acting Lantus with short-acting before meals. Instructed on insulin self administration as well as glucose self monitoring Met with healthcare educator before discharge also FBS 166 day of discharge with CO2 of 24 potassium 3.9 Time Spent with Patient Time attestation: Total time spent providing and/or coordinating discharge services: 35 minutes Exam Narrative: Exam Narrative: Condition on discharge Blood pressure 140/66 pulse is 84 saturating 100% on room air afebrile Lungs clear CV regular rate rhythm no murmurs Extremities without edema distal pulses are 2+ Neuro alert pleasant cooperative no focal deficits He was up in about eating a regular diabetic diet without any complications able to be discharged home in stable condition. Seen by healthcare educator while here DS: Data Data Completed and Pending Labs on day of discharge: Labs from last 24 hours 05/08/20 05/08/20 05/08/20 12:22 11:44 07:46 Sodium 134 L Potassium 3.9 Chloride 99 Carbon Dioxide 24 Anion Gap 11 BUN 9 Creatinine 0.70 Estim Creat Clear Calc 177 Estimated GFR > 60 Glucose 340 H POC Capillary Glucose 348 H 187 H Calcium 9.1 Phosphorus Albumin 05/08/20 05/07/20 04:49 20:22 Sodium 138 Potassium 2.8 L* Chloride 108 H Carbon Dioxide 25 Anion Gap 5 L BUN 9 Creatinine 0.60 L Estim Creat Clear Calc 203 Estimated GFR > 60 Glucose 166 H POC Capillary Glucose 407 H Calcium 8.6 Phosphorus 4.5 Albumin 3.0 L Discharge Plan Discharge Attending physician on discharge: Brandon Encarnacion Consulting providers: Nash Paul Jr. ; Jessica Ny ; Burt Benton Discharging Clinician: Brandon Encarnacion Patient Disposition: Home, Self-Care Activity: as tolerated Diet: diabetic Patient Instructions: Antibiotic Form, Type 1 Diabetes in Adults: New Diagnosis (DC) Stand Alone Forms: General Discharge Information Follow-up/Referrals: Nash Paul Jr., MD [Physician] - 2 Weeks Discharge Medications: Harsh Anthony
[2020-05-08 18:16] LABS: Glucose Point of Care 186 (65-105)
[2020-05-08 21:15] LABS: Glutamic acid decarboxylase AA <5 IU/mL (<5)
[2020-05-12 16:08] LABS: C-Peptide 0.58 ng/mL (0.80-3.85)
[2020-05-13 00:37] LABS: Islet Cell Antibody Screen NEGATIVE (NEGATIVE)
--- NOTE | 2020-05-15 15:29 | PCCDE ---
Diabetes education f/up: called pt at home today. Pt sts he is doing well and was able to use insulin discount cards without problems. Pt sts he is using an smiley, [employer], to track BG and reports range of 120-250mg/dl so far. Denies any hypoglycemia. Pt reports to have PCP appt on 05/21/20. Encouraged pt to contact educator stewart.
== END 2020-05-08 18:48 | disposition home or self-care (01) | DRG 420 ==
LOC: ANHED 16:37 → ANHIMU 18:33 → ANH2MED 05-08 17:06 → ANHIMU 05-12 16:13
PROVIDERS: Internal Medicine; Physician Assistant; Admitting Provider Family Medicine; Emergency Provider Emergency Medicine; Visit Provider Internal Medicine
DX: E11.10 Type 2 diabetes mellitus with ketoacidosis without coma (principal); E11.9 Type 2 diabetes mellitus without complications; K59.00 Constipation, unspecified; R03.0 Elevated blood-pressure reading, without diagnosis of hypertension
CPT/HCPCS: 36415; 36600; 71046; 74018; 80048; 80053; 80061; 80069; 81001; 82010; 82375; 82805; 82948; 83036; 83050; 83735; 83880; 84100; 84443; 84681; 85025; 85027; 86341; 96361; 96374; 96375; 99285; A9270; J1650; J1815; J2405; J3480; J7030; J7050; J7120

== ENCOUNTER 2023-10-11 10:43 | Emergency (ER) | payer OTHER, SELFPAY ==
--- NOTE | ~2023-10-11 | XR_ITS ---
XR elbow LT min 3V, XR forearm LT 2V 10/11/2023 16:20 INDICATION: Left arm pain after fall PROCEDURE: 2 views left forearm and 4 views left elbow COMPARISON: No prior studies for comparison. FINDINGS: Fracture, dislocation or subluxation is not identified. The soft tissues appear within norm al limits. No foreign bodies are identified. IMPRESSION: 1: NO ACUTE BONE OR JOINT ABNORMALITY IDENTIFIED. Reviewed, dictated and finalized at location B. IMPRESSION: 1: NO ACUTE BONE OR JOINT ABNORMALITY IDENTIFIED.
--- NOTE | 2023-10-11 16:04 | ED.WOUNDLAC ---
HPI - Wound/Laceration General Chief Complaint: Wound/Laceration Stated Complaint: left elbow lac Time Seen by Provider: 10/11/23 15:24 History of Present Illness HPI narrative: Patient is a 28-year-old male with history of diabetes, not currently on any medications here with a fall and laceration to his left elbow. 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 He is left-handed. He noted he had a laceration to that elbow. He has been able to move the elbow without difficulty, has taken no medications for pain. He does not know when his last tetanus shot was. He notes that he stopped taking his metformin 6-7 months ago due to being unable to afford this medication. He notes he hit his left knee as well but the pain is mild. He has been able to ambulate without difficulty. Related Data Allergies Allergy/AdvReac Type Severity Reaction Status Date / Time No Known Allergies Allergy Verified 10/11/23 15:20 Review of Systems Review of Systems: All systems reviewed & are unremarkable except as noted in HPI and below PMFSH Past Medical History Medical History Diabetes mellitus, new onset (~05/05/20) Surgical History Surgical History No history of previous surgery Family History Family History Sibling Epilepsy Cerebral palsy Social History Social History (Updated 05/05/20 @ 23:45 by Negar Ricci DO) Social History: The patient lives in [place] with his brother and grandmother. 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 He has no children. He is a lifelong nonsmoker and denies alcohol and illicit substance abuse. He designates his brother Carlos Valverde as his surrogate decision maker and he wishes to be a full code. Smoking status: Never smoker Alcohol intake: never Substance use type: does not use Spiritual care concerns: No Exam Narrative: GENERAL: Well-appearing, well-nourished, and in no acute distress. HEAD: Normocephalic, atraumatic. EYES: PERRLA and EOMI. ENT: Nares clear. Mucous membranes moist. NECK: Supple. C-spine non tender CHEST: Clear to auscultation. No respiratory distress. No chest wall tenderness HEART: Regular rate and rhythm. Normal peripheral pulses. ABDOMEN: Soft, nontender, nondistended. EXTREMITIES: Right upper extremity atraumatic. He has some tenderness surrounding the left elbow with no decreased range of motion no obvious deformity. He has a v-shaped 2 cm laceration with skin avulsion present just distal to the elbow. No forearm deformity, strong radial pulse, normal sensation and perfusion to hand. Right lower extremity atraumatic. Left hip, knee, ankle with normal range of motion, nontender. Small superficial abrasion present to anterior left knee. SKIN: Warm, dry, no rash. NEURO: No focal deficits. Alert and oriented x3. PSYCH: Normal mood and affect. Course Course Emergency Course: Chart review performed. Patient here with lac to left elbow, not UTD on tetanus. Patient seen evaluated, nontoxic appearing, alert, oriented. He appears to have isolated injuries to the left elbow and left knee. Left knee appears to be superficial normal range of motion, do not feel that imaging is indicated. We will do x-rays of left elbow, forearm and perform laceration repair. Tetanus will be updated. Tylenol ordered for pain. Will check patient's blood glucose given the fact that he is noncompliant with metformin for many months. Xrays negative. Laceration repair performed by myself. The results of pertinent diagnostic studies and exam findings were discussed. The patient?s provisional diagnosis and plan of care were discussed with the patient and present family. The patient and/or present family e
[2023-10-11 16:12] VITALS: BP 155/91; PULSE 75; RESP 17; TEMP 36.8; O2SAT 100
[2023-10-11] MEDS: TETANUS,DIPHTHERIA,AC PERTUSSIS ADULT (0.5 ML) BOOSTRIX IM (16:40)
[2023-10-11] MEDS: ACETAMINOPHEN 325 MG TABLET 650 MG PO (16:40)
== END 2023-10-11 19:00 | disposition home or self-care (01) ==
PROVIDERS: Emergency Provider Student in an Organized Health Care Education/Training Program
DX: S51.012A Laceration without foreign body of left elbow, initial encounter (principal); Z23 Encounter for immunization; E11.9 Type 2 diabetes mellitus without complications; W01.0XXA Fall on same level from slipping, tripping and stumbling without subsequent striking against object, initial encounter
CPT/HCPCS: 12001; 73080; 73090; 90471; 90715; 99283; A9270